=== PATIENT | female | born 1965 | race Caucasian/White ===

== ENCOUNTER 2023-12-12 13:05 | Outpatient (CLI) | payer OTHER, SELFPAY | END 2023-12-12 13:06 | disposition home or self-care (01) | PROVIDERS: Visit Provider Obstetrics & Gynecology | DX: Z13.29 Encounter for screening for other suspected endocrine disorder (principal) | CPT/HCPCS: 84443 ==

== ENCOUNTER 2023-12-27 06:30 | Outpatient (CLI) | payer OTHER, SELFPAY ==
--- NOTE | 2023-12-27 07:52 | W.ANESCHARGE ---
Anesthesia Charges Start Date/Time Anesthesia Start Date: 12/27/23 Anesthesia Start Time: 07:18 Stop Date/Time Anesthesia Stop Date: 12/27/23 Anesthesia Stop Time: 07:47
--- NOTE | 2023-12-27 09:16 | W.ANESCHARGE ---
Anesthesia Charges Start Date/Time Anesthesia Start Date: 12/27/23 Anesthesia Start Time: 07:18 Stop Date/Time Anesthesia Stop Date: 12/27/23 Anesthesia Stop Time: 07:47
== END 2023-12-27 06:31 | disposition home or self-care (01) ==
LOC: OP CLINIC 06:32
PROVIDERS: PCP Obstetrics & Gynecology; Visit Provider Surgery
DX: Z12.11 Encounter for screening for malignant neoplasm of colon (principal); K63.5 Polyp of colon; Z86.010 Personal history of colon polyps
CPT/HCPCS: 00811; 45385; 88305; J2704

== ENCOUNTER 2023-12-27 08:27 | Outpatient (CLI) | payer OTHER, SELFPAY ==
--- OUTSIDE RECORDS SUMMARY | 2023-12-27 13:19 | XMS_ITS | Clinical Summary ---
Author Name Unknown Organization [employer] [facility] Address [place], [place] [address] Care Team Providers Care Extract Wringer Name Role Phone Pcp, No Primary Care Provider Unavailabl e Allergies No known active allergies Medications No known medications Encounters Date Type Department Care Team Description 12/13/2023 Lab Requisition [facility] [phone] Andreia Cantrell MD from Last 3 Months Family History Medical History Relation Name Comments Cancer-breast Maternal Aunt Diag at 51 Cancer-breast Mother Diag at 50 Relation Name Status Comments Maternal Aunt Alive Mother Alive Social History Tobacco Use Types Packs/Day Years Used Date Smoking Tobacco: Every Day Cigarettes Alcohol Use Standard Drinks/Week Comments No 0 (1 standard drink = 0.6 oz pur e alcohol) Sex and Gender Information Value Date Recorded Sex Assigned at Not on file Gender Identity Not on file Sexual Orientation Not on file Obstetrics History Last Filed Vital Signs Vital Sign Reading Time Taken Comments Blood Pressure 116/82 03/19/2016 2:28 PM CDT Pulse 84 03/19/2016 2:28 PM CDT Temperature 37.3 ??C (99.2 ??F) 03/19/2016 12:25 PM C DT Respiratory Rate 18 03/19/2016 12:25 PM CDT Oxygen Saturation 98% 03/19/2016 2:28 PM CDT Inhaled Oxygen Concentration - - Weight 54.4 kg (120 lb) 03/19/2016 12:25 PM CDT Height 162.6 cm (5' 4) 03/19/2016 12:25 PM CDT Body Mass Index 20.6 03/19/2016 12:25 PM CDT Plan of Treatment Not on file Procedures Procedure Name Priority Date/Time Associated Diagnosis Comments LAB TRACKING EVENT Routine 12/12/2023 12 :00 PM CDT ELECTRICAL CONTROLS TECHNICIAN THIN PREP PAP SCREEN IMAGED Routine 12/12/2023 12:00 PM CDT HPV THIN PREP Routine 12/12/2023 12:00 PM CDT from Last 3 Months Results * LAB TRACKING EVENT (12/12/2023 12:00 PM CDT) Other (Other) Client Collect / Unknown 12/12/2023 12:00 PM CDT 12/13/2023 4:33 PM CDT Andreia Cantrell MD LAB BILL ONLY [facility] [address] [place] [id number], * ELECTRICAL CONTROLS TECHNICIAN THIN PREP PAP SCREEN IMAGED (12/12/2023 12:00 PM CDT) Case Report Gynecologic Cytology Report ? Case: [id number] ? Authorizing Provider: ??Óscar, Andreia Yun MD ?Collected: ? 12/12/2023 1200 ? Ordering Location: ? [facility] ?Received: ?12/14/2023 0843 ? First Screen: ?Chavez, Stephani ? Specimen: ?ELECTRICAL CONTROLS TECHNICIAN ThinPrep Vial Screening, Cervical ? 12/26/2023 12:20 PM CDT [facility] INTERPRETATION/ RESULT NEGATIVE FOR INTRAEPITHELIAL LESION OR MALIGNANCY (NIL) (none) 12/26/2023 12:20 PM CDT [facility] IMEN ADEQUACY Satisfactory for evaluation Endocervical component present 12/26/2023 12:20 PM CDT [facility] HPV REQUEST HPV and PAP 12/26/2023 12:20 PM CDT [facility] Date of LMP 12/26/2023 12:20 PM CDT [facility] Comment:3 years ago Last Pap Date 12/26/2023 12:20 PM CDT [facility] Comment:unknown Last Pap Result First Pap/Unknown 12:20 PM CDT [facility] Abnormal Pap or [place] Bx in last 5 years No 12/26/2023 12:20 PM CDT [facility] Menstrual Status Postmenopausal 12/26/2023 12:20 PM CDT [facility] Win[place] Bx Done Today No 12/26/2023 12:20 PM CDT [facility] Additional Information 12/26/2023 12:20 PM CDT [facility] Comment: Interpreted at [facility], Central Laboratory - [address], [place] [address] Automated Review Successful 12/26/2023 12:20 PM CDT [facility] Comment:Specimen processed s uccessfully by automated mud mixer device, ThinPrep Imaging System, [employer] ANCILLARY TESTING ELECTRICAL CONTROLS TECHNICIAN HPV Ordered, Please see separate report 12/26/2023 12:20 PM CDT [facility] Note The pap test is a screening technique, not a diagnostic procedure. It is used primarily to screen for squamous cancers and precursor lesions. Published studies have shown that it is subject to both false negative and false positive results. The pap test should not be used as the sole means to diagnose or exclude pre-malignant and malignant lesions. 12/26/2023 12:20 PM CDT [facility]- ENTRAL LABORATORY Other (Cervical) 12/12/2023 12:00 PM CDT 12/14/2023 8:43 AM CDT Andreia Cantrell MD PATHOLOGY/CYTOLOGY Performing Organization Address [facility]/ZIP Co de Phone Number [facility] [address] [place] [phone], * HPV HIGH RISK (12/12/2023 12:00 PM CDT) TYPE 16 Negative Negative 12/18/2023 11:03 AM CDT [facility] LAB[facility] TYPE 18 Negative Negative 12/18/2023 11:03 AM CDT [facility] TRAL LABORATORY OTHER HIGH RISK TYPES Negative Negative 12/18/2023 11:03 AM CDT [facility] TR[facility] LAB[facility] Other (Cervical) 12/12/2023 12:00 PM CDT 12/14/2023 8:43 AM CDT Narrative [facility] - 12/18/2023 11:03 AM CDT HPV types 16, 18, 31, 33, 35, 39, 45, 51, 52, 56, 58, 59, 66 and 68 DNA were undetectable or below the pre-set threshold. Methodology: Donaldo Britt 4800 HPV Test Andreia Cantrell MD MICROBIOLOGY Performing Organization Address [facility] Co de Phone Number [facility] [address] [place] [phone], from Last 3 Months Care Teams Extract Wringer Relationship Specialty Start Date End Date Pcp, No . PCP - General 08/17/21
== END 2023-12-27 08:28 | disposition home or self-care (01) ==
PROVIDERS: PCP Obstetrics & Gynecology; Referring Provider Obstetrics & Gynecology; Visit Provider Obstetrics & Gynecology
DX: Z13.220 Encounter for screening for lipoid disorders (principal)
CPT/HCPCS: 80061; 83721

== ENCOUNTER 2023-12-31 08:03 | Outpatient (CLI) | payer OTHER, SELFPAY ==
--- OUTSIDE RECORDS SUMMARY | 2024-01-02 09:30 | XMS_ITS | Clinical Summary ---
Author Name Unknown Organization [employer] [facility] Address [place], [place] [address] Care Team Providers Care Spectrographic Analyst Name Role Phone Pcp, No Primary Care Provider Unavailabl e Allergies No known active allergies Medications No known medications Encounters Date Type Department Care Team Description 12/27/2023 Lab Requisition [facility] [phone] Joana Hughes MD 12/13/2023 Lab Requisition [facility] [phone] Andreia Cantrell MD from Last 3 Months [...] Associated Diagnosis Comments LAB TRACKING EVENT Routine 12/27/2023 7: 20 AM CDT PATH TISSUE EXAM Routine 12/27/2023 7:20 AM CDT LAB TRACKING EVENT Routine 12/12/2023 12 :00 PM CDT DONOR PROCESSOR THIN PREP PAP SCREEN IMAGED Routine 12/12/2023 12:00 PM CDT HPV THIN PREP Routine 12/12/2023 12:00 PM CDT from Last 3 Months Results * LAB TRACKING EVENT (12/27/2023 7:20 AM CDT) Only the most recent of2 resultswithin the time period is included. Other (Other) Client Collect / Unknown 12/27/2023 7:20 AM CDT 12/27/2023 9:13 PM CDT Joana Hughes MD LAB BILL ONLY [facility] [address] [place] [address], * PATH TISSUE EXAM (12/27/2023 7:20 AM CDT) Case Report Pathology Report ?Case: [id number] ? Authorizing Provider: ??Joana Hughes MD ?Collected: ? 12/27/2023 0720 ? Ordering Location: ? [facility] ?Received: ?12/28/2023 1056 ? Pathologist: ? Roxi Canales, ? Specimens: ?? A) - Cecal Polyp ? B) - Sigmoid Biopsy ? C) - Rectal Polyp ? 12/31/2023 3:08 PM CDT [facility] Final Diagnosis A) COLON, CECUM, BIOPSY: 1. Normal colonic mucosa; a lymphoid aggregate is present (clinically,1 polyp) 2. Negative for serrated change, dysplasia, and malignancy B) COLON, SIGMOID, POLYPECTOMY: 1. Tubular adenoma 2. Negative for high grade dysplasia 3. Per the colonoscopy report: ?? a. Polyp size: 3 mm ?? b. Resection: Complete ?? c. Retrieval: Complete C) COLON, RECTOSIGMOID, POLYPECTOMY: 1. Tubular adenoma 2. Negative for high grade dysplasia 3. Per the colonoscopy report: ?? a. Polyp size: 3 mm ?? b. Resection: Complete ?? c. Retrieval: Complete 12/31/2023 3:08 PM CDT [facility] Comment Deeper tissue levels were examined on part A. 12/31/2023 3:08 PM CDT [facility] Clinical Information Ms. German is a 58 y.o. who presents for colonoscopy examination. Multiple polyps were identified 12/31/2023 3:08 PM CDT [facility] Gross Description A) Received in formalin, labeled with the patient's name and cecum polyp, are 5 soft pale-sellers mucosal fragments, ranging 0.3-0.5 cm which are submitted in toto in 1 cassette. B) Received in formalin, labeled with the patient's name and sigmoid polyp, 0.5 cm focally polypoid soft pale-sellers tissue which is submitted in toto in 1 cassette. C) Received in formalin, labeled with the patient's name and sigmoid, rectum polyp, is a 2 x 0.6 x 0.4 cm unoriented thin sellers mucosal strip with a 0.4 x 0.4 cm sessile polyp. Specimen is inked blue, sectioned (6 pieces) and entirely submitted in 1 cassette. The specimen was placed in formalin at 0720 on 12/27/2023. LDW 12/28/2023 12/31/2023 3:08 PM CDT [facility] Microscopic Description The final diagnosis is based on microscopic examination of appropriate sections of all specimens. 12/31/2023 3:08 PM CDT [facility] Additional Information Interpreted at [facility], Central Laboratory - [address], [place] [address] 12/31/2023 3:08 PM CDT [facility] Other (Cecal Polyp) 12/27/2023 7:20 AM CDT 12/28/2023 10:56 AM CDT Specimen (specimen) (Sigmoid Biopsy) 12/27/2023 7:20 AM CDT 12/28/2023 10:56 AM CDT Specimen (specimen) (Rectal Polyp ) 12/27/2023 7:20 AM CDT 12/28/2023 10:56 AM CDT Joana Hughes MD PATHOLOGY/CYTOLOGY [facility]AL LABORATORY [address] [place] [address], * DONOR PROCESSOR THIN PREP PAP SCREEN IMAGED (12/12/2023 12:00 PM CDT) Case Report Gynecologic Cytology Report ? Case: [id number] ? Authorizing Provider: ??Óscar, Andreia Yun MD ?Collected: ? 12/12/2023 1200 ? Ordering Location: ? [facility] ?Received: ?12/14/2023 0843 ? First Screen: ?Stephani Chavez ? Specimen: ?DONOR PROCESSOR ThinPrep Vial Screening, Cervical ? 12/26/2023 12:20 PM CDT [employer] [facility] LABORATORY-C ENTRAL LABORATORY INTERPRETATION/ RESULT NEGATIVE FOR INTRAEPITHELIAL LESION OR MALIGNANCY (NIL) (none) 12/26/2023 12:20 PM CDT [facility]AL LAB[facility]AT[facility] IMEN ADEQUACY Satisfactory for evaluation Endocervical component present 12/26/2023 12:20 PM CDT [facility] HPV REQUEST HPV and PAP 12/26/2023 12:20 PM CDT [facility] Date of LMP 12/26/2023 12:20 PM CDT [facility] Comment:3 years ago Last Pap Date 12/26/2023 12:20 PM CDT [facility] Comment:unknown Last Pap Result First Pap/Unknown 12:20 PM CDT [facility] Abnormal Pap or [place] Bx in last 5 years No 12/26/2023 12:20 PM CDT [facility] Menstrual Status Postmenopausal 12/26/2023 12:[address] [facility] [place] Bx Done Today No 12/26/2023 12:20 PM CDT [facility] Additional Information 12/26/2023 12:20 PM CDT [facility] Comment: Interpreted at [facility] - [address], [place] [address] Automated Review Successful 12/26/2023 12:20 PM CDT [facility] Comment:Specimen processed s uccessfully by automated pediatric immunologist device, ThinPrep Imaging System, [employer] ANCILLARY TESTING DONOR PROCESSOR HPV Ordered, Please see separate report 12/26/2023 12:[address] [facility] Note The pap test is a [...] and malignant lesions. 12/26/2023 12:[address] [facility] Other (Cervical) 12/12/2023 12:00 PM CDT 12/14/2023 8:[address] Andreia Court Cantrell MD PATHOLOGY/CYTOLOGY [facility] [address] [place] [address], * HPV HIGH RISK (12/12/2023 12:00 PM CDT) TYPE 16 Negative Negative 12/18/2023 11:03 AM CDT [facility] LAB[facility]AT[facility] TYPE 18 Negative Negative 12/18/2023 11:03 AM CDT [facility] OTHER HIGH RISK TYPES Negative Negative 12/18/2023 11:03 AM CDT [facility] Other (Cervical) 12/12/2023 12:00 PM CDT 12/14/2023 8:43 AM CDT Narrative [facility] - 12/18/2023 11:03 AM CDT HPV types 16, 18, 31, 33, 35, 39, 45, 51, 52, 56, 58, 59, 66 and 68 DNA were undetectable or below the pre-set threshold. Methodology: Donaldo Britt 4800 HPV Test Andreia Court Cantrell MD MICROBIOLOGY [facility] [address] [place] [address], from Last 3 Months Care Teams Spectrographic Analyst Relationship Specialty Start Date End Date Pcp, No . PCP - General 08/17/21
== END 2023-12-31 08:04 | disposition home or self-care (01) ==
LOC: NFLDREF 01-02 09:27
PROVIDERS: PCP Obstetrics & Gynecology; Referring Provider Obstetrics & Gynecology; Visit Provider Obstetrics & Gynecology
DX: E78.1 Pure hyperglyceridemia (principal)
CPT/HCPCS: 80061; 83721

== ENCOUNTER 2024-02-08 11:14 | Outpatient (CLI) | payer OTHER, SELFPAY ==
--- NOTE | 2024-02-08 11:30 | CRLHL7_ITS ---
For Patients: As a result of the Century Cures Act, medical imaging exams and procedure reports are released immediately into your electronic medical record. You may view this report before your referring provider. If you have questions, please contact your health care provider. BILATERAL SCREENING MAMMOGRAM WITH COMPUTER-AIDED DETECTION AND TOMOSYNTHESIS TECHNIQUE: CC and MLO views were obtained. These mammographic images have been obtained using full-field digital technique. These mammographic images were interpreted with the benefit of computer-aided detection. Breast Tomosynthesis was used in this interpretation. COMPARISON FILM: Baseline. FINDINGS: The breasts are heterogeneously dense, which may obscure small masses. IMPRESSION: There is no radiographic evidence for malignancy. ASSESSMENT: BI-RADS Category 1: Negative RECOMMENDATION: Routine screening mammogram in 1 year. A lay language report of this examination will be provided to the patient. Bernard Oneill M.D. Diagnostic Radiologist [email or web address] SP/Dictated by: Bernard Oneill MD @ 02/11/2024 1:00:00 PM (Electronically Signed)
== END 2024-02-08 11:15 | disposition home or self-care (01) ==
LOC: MAMMO 11:14
PROVIDERS: Visit Provider Obstetrics & Gynecology
DX: Z12.31 Encounter for screening mammogram for malignant neoplasm of breast (principal); R92.2 Inconclusive mammogram
CPT/HCPCS: 77063; 77067